=== PATIENT | female | born 1965 | race Two or more races ===

== ENCOUNTER 2020-07-25 14:24 | Outpatient (REF) | payer OTHER, SELFPAY ==
--- NOTE | 2020-07-25 14:31 | XR_ITS ---
EXAMINATION: BILATERAL SHOULDER X-RAY CLINICAL INFORMATION: Bilateral pain and numbness COMPARISON: None TECHNIQUE: 4 views of each shoulder FINDINGS: Right: Bone alignment is normal. No fracture or dislocation is seen. Joint spaces are normal. Soft tissues are normal. Left: Bone alignment is normal. No fracture or dislocation is seen. Joint spaces are normal. Soft tissues are normal. XR/XR shoulder LT min 2V IMPRESSION: Unremarkable exam.
--- NOTE | 2020-07-25 14:31 | XR_ITS ---
EXAMINATION: BILATERAL SHOULDER X-RAY CLINICAL INFORMATION: Bilateral pain and numbness COMPARISON: None TECHNIQUE: 4 views of each shoulder FINDINGS: Right: Bone alignment is normal. No fracture or dislocation is seen. Joint spaces are normal. Soft tissues are normal. Left: Bone alignment is normal. No fracture or dislocation is seen. Joint spaces are normal. Soft tissues are normal. XR/XR shoulder RT min 2V IMPRESSION: Unremarkable exam.
== END 2020-07-25 14:25 | disposition home or self-care (01) ==
LOC: HO.XRAY 14:24
DX: M25.511 Pain in right shoulder (principal); M25.512 Pain in left shoulder; R20.0 Anesthesia of skin
CPT/HCPCS: 73030

== ENCOUNTER → 2020-09-03 13:39 | Outpatient (BNV) | payer OTHER, SELFPAY | PROVIDERS: PCP Hospitalist; Visit Provider Internal Medicine Medical Oncology | DX: G56.03 Carpal tunnel syndrome, bilateral upper limbs (principal); Z86.000 Personal history of in-situ neoplasm of breast; M25.50 Pain in unspecified joint | CPT/HCPCS: 99212; 99213; 99214 ==

== ENCOUNTER 2020-10-05 09:39 | Outpatient (REF) | payer OTHER, SELFPAY ==
[2020-10-05 11:06] LABS: MANUAL DIFF FLAG NO
[2020-10-05 11:09] LABS: Basophils Percent Auto 0.6 % (0-2); Eosinophils Percent Auto 0.8 % (0-4); Hematocrit 43.5 % (37-47); Hemoglobin 14.3 g/dl (12.0-16.0); Imm Gran Abs Auto 0.01 X10*3/uL (0.00-0.03); Imm Gran Pct Auto 0.2 % (0.0-0.4); Lymphocytes Absolute Auto 1.2 X10*3/uL (1.2-4.9); Lymphocytes Percent Auto 26.1 % (20-40); Mean Corpuscular HGB Conc 32.9 g/dl (31.0-35.0); Mean Corpuscular Hemoglobin 28.7 pg (27.0-33.0); Mean Corpuscular Volume 87.2 fL (80-98); Mean Platelet Volume 12.9 fL (9.4-12.3); Monocytes Absolute Auto 0.3 X10*3/uL (0.1-1.2); Monocytes Percent Auto 6.5 % (2-11); Neutrophils Absolute Auto 3.1 X10*3/uL (2.0-8.3); Neutrophils Percent Auto 65.8 % (45-73); Platelet Count 170 X10*3/uL (160-400); Red Blood Count 4.99 X10*6/uL (4.20-5.50); Red Cell Distribution Width 13.2 % (11.0-16.0); White Blood Count 4.8 X10*3/uL (4.8-10.8)
[2020-10-05 11:41] LABS: Alanine Aminotransferase 31 U/L (0-31); Albumin Level 4.5 g/dL (3.5-5.0); Alkaline Phosphatase 114 U/L (39-117); Anion Gap 12 (12-20); Aspartate Amino Transferase 29 U/L (5-31); Bilirubin Total 0.5 mg/dL (0.0-1.0); Blood Urea Nitrogen 19 mg/dL (9-16); C Reactive Protein 0.31 mg/dL (< or = 0.50); Calcium 9.9 mg/dL (8.4-10.2); Carbon Dioxide 30 mmol/L (22-29); Chloride 104 mmol/L (96-108); Estimated Glomerular Filt Rate > 60; Glucose Random 97 mg/dL (60-115); Potassium 4.6 mmol/L (3.3-5.1); Rheumatoid Factor < 15.0 IU/mL (<15.0); Sodium 141 mmol/L (135-145); Total Protein 7.2 g/dL (6.5-8.0)
[2020-10-05 11:50] LABS: Thyroid Stimulating Hormone 0.64 uIU/mL (0.32-4.0)
[2020-10-05 12:04] LABS: Erythrocyte Sedimentation Rate 14 MM/HR (0-20)
[2020-10-06 08:36] LABS: Lyme Abs Screen <0.90 index
[2020-10-06 12:56] LABS: Antibody to SS-A Antigen <1.0 NEG AI (<1.0 NEG); Antibody to SS-B Antigen <1.0 NEG AI (<1.0 NEG)
[2020-10-08 12:56] LABS: Anti Nuclear Antibody Screen NEGATIVE (NEGATIVE)
[2020-10-08 13:47] LABS: Cyclic Citrullinated Peptide <16 UNITS
[2020-10-10 13:47] LABS: Vitamin D 25-OH, D2 44 ng/mL; Vitamin D 25-OH, D3 8 ng/mL; Vitamin D 25-OH, Total 52 ng/mL (30-100)
== END 2020-10-05 09:40 | disposition home or self-care (01) ==
LOC: HO.LAB 09:39
PROVIDERS: PCP Hospitalist; Referring Provider Internal Medicine Medical Oncology; Visit Provider Student in an Organized Health Care Education/Training Program
DX: M25.50 Pain in unspecified joint (principal); D05.12 Intraductal carcinoma in situ of left breast; Z79.82 Long term (current) use of aspirin; Z79.899 Other long term (current) drug therapy
CPT/HCPCS: 36415; 80053; 82306; 84443; 85025; 85652; 86038; 86039; 86140; 86200; 86235; 86431; 86618; 99202

== ENCOUNTER 2020-11-08 14:26 | Outpatient (REF) | payer OTHER, SELFPAY ==
[2020-11-08 15:49] LABS: MANUAL DIFF FLAG NO
[2020-11-08 15:58] LABS: Basophils Percent Auto 0.3 % (0-2); Eosinophils Absolute Auto 0.1 X10*3/uL (0.0-0.4); Hematocrit 43.2 % (37-47); Hemoglobin 14.1 g/dl (12.0-16.0); Imm Gran Abs Auto 0.01 X10*3/uL (0.00-0.03); Imm Gran Pct Auto 0.2 % (0.0-0.4); Lymphocytes Absolute Auto 1.6 X10*3/uL (1.2-4.9); Mean Corpuscular HGB Conc 32.6 g/dl (31.0-35.0); Mean Corpuscular Hemoglobin 28.5 pg (27.0-33.0); Mean Corpuscular Volume 87.3 fL (80-98); Mean Platelet Volume 12.3 fL (9.4-12.3); Monocytes Absolute Auto 0.4 X10*3/uL (0.1-1.2); Monocytes Percent Auto 7.1 % (2-11); Neutrophils Absolute Auto 3.7 X10*3/uL (2.0-8.3); Neutrophils Percent Auto 64.4 % (45-73); Platelet Count 173 X10*3/uL (160-400); Red Blood Count 4.95 X10*6/uL (4.20-5.50); Red Cell Distribution Width 13.3 % (11.0-16.0); White Blood Count 5.7 X10*3/uL (4.8-10.8)
[2020-11-08 16:22] LABS: Alanine Aminotransferase 19 U/L (0-31); Albumin Level 4.5 g/dL (3.5-5.0); Alkaline Phosphatase 103 U/L (39-117); Anion Gap 12 (12-20); Aspartate Amino Transferase 19 U/L (5-31); Bilirubin Total 0.3 mg/dL (0.0-1.0); Blood Urea Nitrogen 16 mg/dL (9-16); Calcium 9.4 mg/dL (8.4-10.2); Carbon Dioxide 28 mmol/L (22-29); Chloride 108 mmol/L (96-108); Estimated Glomerular Filt Rate > 60; Glucose Random 96 mg/dL (60-115); Potassium 4.4 mmol/L (3.3-5.1); Sodium 144 mmol/L (135-145); Total Protein 7.3 g/dL (6.5-8.0)
[2020-11-08 16:44] LABS: Vitamin D 25-OH Total 23.9 ng/mL (>30)
== END 2020-11-08 14:27 | disposition home or self-care (01) ==
LOC: HO.LAB 14:26
PROVIDERS: Internal Medicine Medical Oncology; Absent Provider Obstetrics & Gynecology; PCP Hospitalist; Visit Provider Student in an Organized Health Care Education/Training Program
DX: D05.12 Intraductal carcinoma in situ of left breast (principal); N83.209 Unspecified ovarian cyst, unspecified side
CPT/HCPCS: 36415; 80053; 82306; 85025; 99212

== ENCOUNTER 2021-10-01 16:25 | Outpatient (REF) | payer OTHER, SELFPAY ==
[2021-10-01 17:08] LABS: MANUAL DIFF FLAG NO
[2021-10-01 18:01] LABS: Basophils Percent Auto 0.4 % (0-2); Eosinophils Absolute Auto 0.1 X10*3/uL (0.0-0.4); Eosinophils Percent Auto 1.2 % (0-4); Hemoglobin 14.3 g/dl (12.0-16.0); Imm Gran Abs Auto 0.02 X10*3/uL (0.00-0.03); Imm Gran Pct Auto 0.4 % (0.0-0.4); Lymphocytes Absolute Auto 1.7 X10*3/uL (1.2-4.9); Lymphocytes Percent Auto 30.8 % (20-40); Mean Corpuscular HGB Conc 32.5 g/dl (31.0-35.0); Mean Corpuscular Hemoglobin 28.7 pg (27.0-33.0); Mean Corpuscular Volume 88.2 fL (80.0-98.0); Mean Platelet Volume 12.5 fL (9.4-12.3); Monocytes Absolute Auto 0.5 X10*3/uL (0.1-1.2); Neutrophils Absolute Auto 3.4 x10*3/uL (2.0-8.3); Neutrophils Percent Auto 59.2 % (45-73); Platelet Count 166 X10*3/uL (160-400); Red Blood Count 4.99 X10*6/uL (4.20-5.50); Red Cell Distribution Width 13.2 % (11.0-16.0); White Blood Count 5.7 X10*3/uL (4.8-10.8)
[2021-10-01 18:26] LABS: Alanine Aminotransferase 27 U/L (0-31); Albumin Level 4.5 g/dL (3.5-5.0); Alkaline Phosphatase 109 U/L (39-117); Anion Gap 11 (12-20); Aspartate Amino Transferase 22 U/L (5-31); Bilirubin Total 0.5 mg/dL (0.0-1.0); Blood Urea Nitrogen 14 mg/dL (9-16); Carbon Dioxide 29 mmol/L (22-29); Chloride 106 mmol/L (96-108); Estimated Glomerular Filt Rate > 60; Glucose Random 84 mg/dL (60-115); Potassium 4.3 mmol/L (3.3-5.1); Sodium 142 mmol/L (135-145); Total Protein 7.2 g/dL (6.5-8.0)
[2021-10-01 18:48] LABS: TSH reflex Free T4 1.67 uIU/mL (0.32-4.0); Vitamin D 25-OH Total 28.4 ng/mL (>30)
== END 2021-10-01 16:26 | disposition home or self-care (01) ==
LOC: HO.LAB 16:25
PROVIDERS: PCP Hospitalist; Visit Provider Internal Medicine Medical Oncology
DX: D05.12 Intraductal carcinoma in situ of left breast (principal)
CPT/HCPCS: 36415; 80053; 82306; 84443; 85025

== ENCOUNTER → 2021-12-13 09:48 | Outpatient (BNVA) | payer OTHER, SELFPAY | PROVIDERS: PCP Hospitalist; Visit Provider Nurse Practitioner | DX: Z12.11 Encounter for screening for malignant neoplasm of colon (principal); D12.6 Benign neoplasm of colon, unspecified | CPT/HCPCS: 99202 ==

== ENCOUNTER → 2022-12-03 15:10 | Outpatient (REF) | payer OTHER, SELFPAY ==
--- NOTE | 2022-12-03 15:15 | ECG_ITS ---
Test Reason : r07.9 Blood Pressure : / mmHG Vent. Rate : 072 BPM Atrial Rate : 072 BPM P-R Int : 186 ms QRS Dur : 066 ms QT Int : 382 ms P-R-T Axes : 058 025 018 degrees QTc Int : 418 ms Normal sinus rhythm Normal ECG When compared with ECG of 23-MAR-2018 15:19, Nonspecific T wave abnormality no longer evident in Anterior leads Referred By: Karolina Hanley Electronically Signed By:ALBERTO HARRY MD
== END ==
LOC: HO.CARD 15:10
PROVIDERS: PCP Hospitalist; Visit Provider Internal Medicine Medical Oncology
DX: R07.9 Chest pain, unspecified (principal)
CPT/HCPCS: 93005

== ENCOUNTER 2022-12-08 08:45 | Day surgery (SDC) | payer OTHER, SELFPAY ==
[2022-12-03 16:16] VITALS: BMI 30.3
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
[2022-12-08 09:32] VITALS: BP 128/76; PULSE 76; RESP 16; TEMP 36.4; O2SAT 98
[2022-12-08] MEDS: Lactated Ringers 1,000 ML 100 ML IVCONT (09:41)
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
--- NOTE | 2022-12-08 10:45 | W.PM.OPN ---
Operative Note Operative Note Date of Service: 12/08/22 Narrative: FLEXIBLE TRANSORAL UPPER GASTROINTESTINAL ENDOSCOPY WITH BIOPSIES AND COLONOSCOPY TILL CECUM WITH BIOPSIES Pre-op diagnosis: Colon cancer screening, history of colon polyps, GERD, abdominal pain Post-op diagnosis: Esophagitis, hiatal hernia, gastric erosions, colon polyps, diverticulosis, hemorrhoids? Endoscopist:? Rachid Lester MD Anesthesia:?MAC UPPER ENDOSCOPY Consent: Indications for the procedure and potential complications of bleeding, perforation, reaction to medications and missed diagnosis were discussed with the patient with the help of an [place] quantitative analyst developer, [place], and informed consent was obtained. Instrument: Olympus GIF H 190 mid size upper endoscope Monitoring: Vital signs and clinical assessment, continuous EKG monitoring, Pulse oximetry, Carbon Dioxide monitoring and blood pressure monitoring were done throughout the procedure. Procedure: The patient was placed in the left lateral decubitis position and pre-procedure medications were administered and a bite block was placed. The endoscope was inserted into the mouth and advanced under direct vision to the third part of duodenum. A careful inspection was made as the upper endoscope was withdrawn including a retroflexed examination of the proximal stomach; Findings and interventions are described below. Findings: Larynx: Normal Esophagus: GE junction at 28 cms, small hiatal hernia 28 to 30 cms. Focal esophagitis with two 1 cms erosions at the GE junction. Stomach: Linear streaks of erythema in the gastric body - biopsied. Multiple linear erosions in the gastric antrum. Biopsies were obtained. Grade 2 flap valve on retroflexed examination of the cardia. Duodenum: Normal bulb and descending duodenum Intervention: Biopsies as noted above COLONOSCOPY PROCEDURE NOTE Consent: Indications for the procedure and potential complications of bleeding, perforation, reaction to medications and missed diagnosis were discussed with the patient and informed consent was obtained. Instrument: Olympus PCF H 190 L variable stiffness pediatric colonoscope Monitoring: Vital signs and clinical assessment, intermittent blood pressure monitoring, continuous EKG monitoring, Pulse oximetry and Carbon Dioxide monitoring were done throughout the procedure. Colon withdrawl time was 16 minutes. Procedure: The patient was placed in the left lateral decubitis position and pre-procedure medications were administered. After a digital rectal examination of the ano-rectum, the video colonoscope was inserted into the rectum and advanced through the colon to the cecum. The colonoscope was slowly withdrawn in a retrograde panoramic fashion and the colon mucosa was carefully examined including a retroflexed view of the rectum. Findings and interventions are described below. Procedure Difficulty: : Without difficulty Findings: Terminal Ileum: Not evaluated Cecum: Normal Ascending Colon: Normal Transverse Colon: A 4-5 mm sessile polyp removed with a cold biopsy Descending Colon: Moderate diverticulosis Sigmoid Colon: Two 3-5 mm sessile polyp - removed with a cold biopsy Moderate diverticulosis Rectum: Normal Ano-rectum: Moderate internal hemorrhoids Colon preparation: Excellent Impression and Post Procedure Diagnosis: Endoscopy Findings: ESOPHAGUS: GE junction at 28 cms, small hiatal hernia 28 to 30 cms. Focal esophagitis with two 1 cms erosions at the GE junction. STOMACH: Gastritis with antral erosions (likely due to aspirin and Diclofenac use) Colonoscopy Findings: Two small polyps removed Moderate diverticulosis seen in the left colon Moderate hemorrhoids on retroflexed exam. Plan: Await pathology results Patient has an appointment on 12/23/22 in the GI [facility] with Dominique Plaza NP. Repeat Colonoscopy interval based on path results - in 5 years if polyps are adenomatous and 10 years if polyps are hyperplastic. Above findings were reviewed with the patient with the help of an [place] quantitative analyst developer and GERD, colon polyps and diverticulosis handouts were given in the discharge area Patient was advised to take omeprazole 20 mg daily instead of p.r.n.. She is trying to cut back on use of diclofenac.
[2022-12-08 11:43] VITALS: BP 89/52; PULSE 83; RESP 16; TEMP 36.8; O2SAT 97
[2022-12-08 11:50] VITALS: BP 100/61; PULSE 69; RESP 16; O2SAT 100
[2022-12-08 11:58] VITALS: BP 121/78; PULSE 65; RESP 16; TEMP 36.8; O2SAT 100
== END 2022-12-08 12:41 | disposition home or self-care (01) ==
PROVIDERS: PCP Hospitalist; Visit Provider Internal Medicine Gastroenterology
PROC: (CPT 45380; principal; 2022-12-08 10:10)
DX: Z12.11 Encounter for screening for malignant neoplasm of colon (principal); Z86.010 Personal history of colon polyps; D12.5 Benign neoplasm of sigmoid colon; D12.3 Benign neoplasm of transverse colon; K57.30 Diverticulosis of large intestine without perforation or abscess without bleeding; K64.8 Other hemorrhoids; K21.9 Gastro-esophageal reflux disease without esophagitis; K29.50 Unspecified chronic gastritis without bleeding; K20.80 Other esophagitis without bleeding; K25.9 Gastric ulcer, unspecified as acute or chronic, without hemorrhage or perforation; K44.9 Diaphragmatic hernia without obstruction or gangrene; E78.00 Pure hypercholesterolemia, unspecified; M19.90 Unspecified osteoarthritis, unspecified site; G89.4 Chronic pain syndrome; M79.7 Fibromyalgia; Z85.3 Personal history of malignant neoplasm of breast; Z79.82 Long term (current) use of aspirin; Z79.899 Other long term (current) drug therapy; Z87.828 Personal history of other (healed) physical injury and trauma; Z98.890 Other specified postprocedural states
CPT/HCPCS: 45380; 43239; 88305; 88342

== ENCOUNTER → 2022-12-23 10:22 | Outpatient (BNVA) | payer OTHER, SELFPAY | PROVIDERS: PCP Hospitalist; Visit Provider Nurse Practitioner | DX: Z12.11 Encounter for screening for malignant neoplasm of colon (principal); K21.9 Gastro-esophageal reflux disease without esophagitis; K22.10 Ulcer of esophagus without bleeding; K29.60 Other gastritis without bleeding; Z86.010 Personal history of colon polyps | CPT/HCPCS: 99212 ==

== ENCOUNTER → 2023-02-04 10:42 | Outpatient (BNVA) | payer OTHER, SELFPAY | PROVIDERS: PCP Hospitalist; Visit Provider Nurse Practitioner | DX: K22.10 Ulcer of esophagus without bleeding (principal); K21.9 Gastro-esophageal reflux disease without esophagitis; K29.60 Other gastritis without bleeding | CPT/HCPCS: 99212 ==

== ENCOUNTER 2023-05-13 11:59 | Outpatient (AMB) | payer OTHER, SELFPAY ==
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
[2023-05-13 12:06] VITALS: BP 134/73; PULSE 71; BMI 31.1
== END 2023-05-13 12:37 | disposition home or self-care (01) ==
PROVIDERS: PCP Hospitalist; Visit Provider Nurse Practitioner
DX: K22.10 Ulcer of esophagus without bleeding (principal); K29.60 Other gastritis without bleeding; K21.9 Gastro-esophageal reflux disease without esophagitis; R21 Rash and other nonspecific skin eruption
CPT/HCPCS: 99213

== ENCOUNTER → 2023-05-13 11:59 | Outpatient (BNVA) | payer OTHER, SELFPAY | PROVIDERS: PCP Hospitalist; Visit Provider Nurse Practitioner | DX: K22.10 Ulcer of esophagus without bleeding (principal); K29.60 Other gastritis without bleeding; K21.9 Gastro-esophageal reflux disease without esophagitis; R21 Rash and other nonspecific skin eruption; Z79.899 Other long term (current) drug therapy | CPT/HCPCS: 99212 ==

== ENCOUNTER 2023-08-17 12:55 | Outpatient (AMB) | payer OTHER, SELFPAY ==
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
[2023-08-17 13:02] VITALS: BP 110/70; PULSE 81; TEMP 36.1; O2SAT 97; BMI 30.9
== END 2023-08-17 14:16 | disposition home or self-care (01) ==
PROVIDERS: PCP Hospitalist; Visit Provider Student in an Organized Health Care Education/Training Program
DX: M25.50 Pain in unspecified joint (principal)
CPT/HCPCS: 99203

== ENCOUNTER → 2023-08-17 12:55 | Outpatient (BNVA) | payer OTHER, SELFPAY | PROVIDERS: PCP Hospitalist; Visit Provider Student in an Organized Health Care Education/Training Program | DX: M25.50 Pain in unspecified joint (principal) | CPT/HCPCS: 99202 ==

== ENCOUNTER 2025-01-02 19:47 | Emergency (ER) | payer OTHER, SELFPAY ==
--- NOTE | ~2025-01-02 | US_ITS ---
CLINICAL HISTORY: BL calf pain, R worse than left Bilateral lower extremity venous duplex ultrasound. Study was performed using color and spectral waveform analysis. Comparison: None Findings: Visualized deep veins are fully compressible with normal flow and augmentation. No popliteal cysts. No significant adenopathy. Impression: Bilateral lower extremity venous duplex ultrasound negative for DVT This document has been electronically signed by: Tim Short MD on 01/02/2025 21:16:43
--- NOTE | ~2025-01-02 | XR_ITS ---
CLINICAL HISTORY: tender lateral malleolus Right ankle three views Comparison: None Findings: No acute fracture or dislocation identified. No acute focal bony abnormality. No radiopaque foreign body noted. Impression: No acute bony abnormality This document has been electronically signed by: Tim Short MD on 01/03/2025 00:00:26
[2025-01-02 19:54] VITALS: BP 142/91; PULSE 88; RESP 18; TEMP 36.1; O2SAT 97; BMI 34.4
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
[2025-01-02 21:22] LABS: MANUAL DIFF FLAG NO
[2025-01-02 21:23] LABS: Basophils Percent Auto 0.5 % (0-2); Eosinophils Absolute Auto 0.2 X10*3/uL (0.0-0.4); Eosinophils Percent Auto 2.8 % (0-4); Hematocrit 41.8 % (37.0-47.0); Hemoglobin 13.8 g/dl (12.0-16.0); Imm Gran Abs Auto 0.01 X10*3/uL (0.00-0.03); Imm Gran Pct Auto 0.2 % (0.0-0.4); Lymphocytes Absolute Auto 1.7 X10*3/uL (1.2-4.9); Mean Corpuscular Hemoglobin 28.9 pg (27.0-33.0); Mean Corpuscular Volume 87.4 fL (80.0-98.0); Mean Platelet Volume 11.6 fL (9.4-12.3); Monocytes Absolute Auto 0.5 X10*3/uL (0.1-1.2); Monocytes Percent Auto 7.7 % (2-11); Neutrophils Absolute Auto 3.7 x10*3/uL (2.0-8.3); Neutrophils Percent Auto 60.8 % (45-73); Platelet Count 162 X10*3/uL (160-400); Red Blood Count 4.78 X10*6/uL (4.20-5.50); Red Cell Distribution Width 12.9 % (11.0-16.0); White Blood Count 6.1 X10*3/uL (4.8-10.8)
[2025-01-02 21:42] LABS: Alanine Aminotransferase 27 U/L (0-31); Albumin Level 4.4 g/dL (3.5-5.0); Alkaline Phosphatase 103 U/L (39-117); Anion Gap 11 (12-20); Aspartate Amino Transferase 23 U/L (5-31); Bilirubin Direct 0.1 mg/dL (0.0-0.5); Bilirubin Total 0.3 mg/dL (0.0-1.0); Blood Urea Nitrogen 17 mg/dL (9-16); Calcium 9.5 mg/dL (8.4-10.2); Carbon Dioxide 29 mmol/L (22-29); Chloride 108 mmol/L (96-108); Creatinine Clr Calc Pharmacy 96.4; Estimated Glomerular Filt Rate > 60; Glucose Random 126 mg/dL (60-115); Sodium 144 mmol/L (135-145); Total Protein 6.9 g/dL (6.5-8.0)
[2025-01-02 21:46] LABS: B Type Natriuretic Peptide 15 pg/mL (<100)
[2025-01-02 22:37] VITALS: BP 134/77; PULSE 87; RESP 16; TEMP 36.9; O2SAT 94
[2025-01-03 00:26] VITALS: BP 104/60; PULSE 67; RESP 18; TEMP 36.9; O2SAT 98
[2025-01-03 00:37] VITALS: BP 104/60; PULSE 67; RESP 18; TEMP 36.9; O2SAT 98
== END 2025-01-03 00:39 | disposition home or self-care (01) ==
PROVIDERS: Physician Assistant Medical; Emergency Provider Emergency Medicine
DX: M25.572 Pain in left ankle and joints of left foot (principal); R60.0 Localized edema; Z79.899 Other long term (current) drug therapy; M79.601 Pain in right arm
CPT/HCPCS: 36415; 73610; 80048; 80076; 83880; 85025; 93970; 99284

== ENCOUNTER → 2025-01-02 20:01 | Outpatient (BNV) | payer OTHER, SELFPAY | PROVIDERS: Visit Provider Radiology Diagnostic Radiology | DX: M25.571 Pain in right ankle and joints of right foot (principal) | CPT/HCPCS: 73610; 93970 ==